=== PATIENT | male | born 1985 | race Caucasian/White ===

== ENCOUNTER 2020-04-15 19:47 | Observation (INO) | payer SELFPAY ==
[~2020-04-15] VITALS: Ht 185.4 cm; Wt 98.0 kg
[2020-04-15] MEDS ORDERED: LORazepam 0.5 MG (ATIVAN) TABLET PO STA ×2 (20:23)
--- NOTE | 2020-04-15 20:44 | ED Psychosocial ---
General Chief Complaint: Detox Stated Complaint: CHEST PAIN,ABD PAIN,NAUSEA Nursing Triage Note: Pt states he usually consumes a large amount of liquor everyday and stopped drinking 2 days ago. Pt is very anxious and having generalized muscle spasms Source: patient Exam Limitations: no limitations History of Present Illness Date Seen by Provider: Apr 15, 2020 Time Seen by Provider: 20:10 Initial Comments the patient arrives ER by private conveyance from home with chief complaint of shakes, dry heaving, nausea, body aches feeling unwell all day today. He quit drinking 2 days ago. He drinks about a pint of vodka and a sixpack of beer a day. He says is going through a divorce and tried to quit drinking. The past he has had DTs whenever he quit drinking. He has not had any seizures. He does not follow with a doctor or have any known medical problems. He denies any fever cough chills or shortness of breath. He denies suicidal ideation. He wants help getting through his withdrawal symptoms. Allergies and Home Medications Allergies Coded Allergies: No Known Drug Allergies (Unverified , 04/15/20) Patient Home Medication List Home Medication List Reviewed: Yes Review of Systems Constitutional: No chills, No fever; malaise EENTM: No ear discharge, No ear pain Respiratory: No cough, No short of breath Cardiovascular: No Hx of Intervention, No palpitations Gastrointestinal: see HPI; No abdominal pain; loss of appetite, nausea, vomiting (dry heaving, poor fluid intake) Skin: No pruritus, No rash All Other Systems Reviewed Negative Unless Noted: Yes Past Chqdfll-Nagchb-Ktixyt Hx Patient Social History Alcohol Use: Regular Use Alcohol Beverage of Choice: Beer (sixpack a day), Whiskey (wild turkey), Cheap Liquor Recreational Drug Use: No Smoking Status: Never a Smoker Recent Foreign Travel: No Contact w/Someone Who Travel: No Recent Infectious Disease Expo: No Recent Hopitalizations: No Physical Abuse: No Sexual Abuse: No Past Medical History Surgeries: No Respiratory: No Cardiac: No Neurological: No Genitourinary: No Gastrointestinal: No Musculoskeletal: No Endocrine: No HEENT: No Cancer: No Psychosocial: No Integumentary: No Blood Disorders: No Physical Exam Vital Signs - First Documented 04/15/20 20:00 Pulse 90 Resp 18 B/P (MAP) 188/112 (137) Pulse Ox 98 O2 Delivery Room Air Capillary Refill : Less Than 3 Seconds Height, Weight, BMI Height: '" Weight: lbs. oz. 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, no motor/sensory deficits, alert, normal mood/affect, oriented x 3, other (fine tremors all 4 quadrants) Appearance/Memory: appropriate appearance, appropriate insight Behavior/Eye Contact: cooperative, good eye contact, normal speech Thoughts/Hallucinations: normal thought pattern, no apparent hallucination Skin: normal color, diaphoresis Progress/Results/Core Measures Results/Orders Lab Results Laboratory Tests Test 04/15/20 20:10 04/15/20 21:25 Range/Units White Blood Count 21.4 H 4.3-11.0 10^3/uL Red Blood Count 5.74 4.35-5.85 10^6/uL Hemoglobin 18.5 H 13.3-17.7 G/DL Hematocrit 51 40-54 % Mean Corpuscular Volume 89 80-99 FL Mean Corpuscular Hemoglobin 32 25-34 PG Mean Corpuscular Hemoglobin Concent 36 32-36 G/DL Red Cell Distribution Width 11.7 10.0-14.5 % Platelet Count 272 130-400 10^3/uL Mean Platelet Volume 11.0 H 7.4-10.4 FL Immature Granulocyte % (Auto) 0 % Neutrophils (%) (Auto) 91 H 42-75 % Lymphocytes (%) (Auto) 5 L 12-44 % Monocytes (%) (Auto) 4 0-12 % Eosinophils (%) (Auto) 0 0-10 % Basophils (%) (Auto) 0 0-10 % Neutrophils # (Auto) 19.3 H 1.8-7.8 X 10^3 Lymphocytes # (Auto) 1.1 1.0-4.0 X 10^3 Monocytes # (Auto) 0.9 0.0-1.0 X 10^3 Eosinophils # (Auto) 0.0 0.0-0.3 10^3/uL Basophils # (Auto) 0.1 0.0-0.1 10^3/uL Immature Granulocyte # (Auto) 0.1 0.0-0.1 10^3/uL Neutrophils % (Manual) 87 % Lymphocytes % (Manual) 3 % Monocytes % (Manual) 3 % Eosinophils % (Manual) 0 % Basophils % (Manual) 0 % Band Neutrophils 7 % Blood Morphology Comment NORMAL Sodium Level 140 135-145 MMOL/L Potassium Level 4.2 3.6-5.0 MMOL/L Chloride Level 93 L 98-107 MMOL/L Carbon Dioxide Level 18 L 21-32 MMOL/L Anion Gap 29 H 5-14 MMOL/L Blood Urea Nitrogen 17 7-18 MG/DL Creatinine 1.09 0.60-1.30 MG/DL Estimat Glomerular Filtration Rate > 60 BUN/Creatinine Ratio 16 Glucose Level 188 H 70-105 MG/DL Calcium Level 9.6 8.5-10.1 MG/DL Corrected Calcium 8.5-10.1 MG/DL Total Bilirubin 1.7 H 0.1-1.0 MG/DL Aspartate Amino Transf (AST/SGOT) 45 H 5-34 U/L Alanine Aminotransferase (ALT/SGPT) 57 H 0-55 U/L Alkaline Phosphatase 120 40-136 U/L Total Protein 8.7 H 6.4-8.2 GM/DL Albumin 5.4 H 3.2-4.5 GM/DL Lipase 22 8-78 U/L Serum Alcohol < 10 <10 MG/DL Urine Color YADY H Urine Clarity CLEAR Urine pH 6.0 5-9 Urine Specific [place] >=1.030 1.016-1.022 Urine Protein 2+ H NEGATIVE Urine Glucose (UA) TRACE H NEGATIVE Urine Ketones 1+ H NEGATIVE Urine Nitrite NEGATIVE NEGATIVE Urine Bilirubin 1+ H NEGATIVE Urine Urobilinogen 0.2 < = 1.0 MG/DL Urine Leukocyte Esterase NEGATIVE NEGATIVE Urine RBC (Auto) 2+ H NEGATIVE Urine RBC 0-2 /HPF Urine WBC 0-2 /HPF Urine Squamous Epithelial Cells RARE /HPF Urine Crystals NONE /LPF Urine Bacteria NEGATIVE /HPF Urine Casts PRESENT /LPF Urine Hyaline Casts >50 H /LPF Urine Mucus LARGE H /LPF Urine Culture Indicated NO Urine Opiates Screen NEGATIVE NEGATIVE Urine Oxycodone Screen NEGATIVE NEGATIVE Urine Methadone Screen NEGATIVE NEGATIVE Urine Propoxyphene Screen NEGATIVE NEGATIVE Urine Barbiturates Screen NEGATIVE NEGATIVE Ur Tricyclic Antidepressants Screen NEGATIVE NEGATIVE Urine Phencyclidine Screen NEGATIVE NEGATIVE Urine Amphetamines Screen NEGATIVE NEGATIVE Urine Methamphetamines Screen NEGATIVE NEGATIVE Urine Benzodiazepines Screen POSITIVE H NEGATIVE Urine Cocaine Screen NEGATIVE NEGATIVE Urine Cannabinoids Screen NEGATIVE NEGATIVE My Orders Orders - STORMY RODGERS Ekg Tracing (04/15/20 19:48) Continuous Ekg Monitoring (04/15/20 19:48) Lorazepam Tablet (Ativan Tablet) (04/15/20 20:23) Lorazepam Tablet (Ativan Tablet) (04/15/20 20:23) Lorazepam Injection (Ativan Injection) (04/15/20 20:45) Ondansetron Injection (Zofran Injectio (04/15/20 20:45) Thiamine Injection (Vitamin B-1 Injectio (04/15/20 20:45) Folic Acid Tablet (Folic Acid Tablet) (04/15/20 20:45) Lactated Ringers (Lr 1000 Ml Iv Solution (04/15/20 20:45) Cbc With Automated Diff (04/15/20 20:38) Comprehensive Metabolic Panel (04/15/20 20:38) Ua Culture If Indicated (04/15/20 20:38) Drug Screen Stat (Urine) (04/15/20 20:38) Alcohol (04/15/20 20:38) Lipase (04/15/20 20:38) Chest 1 View Ap/Pa Only (04/15/20 20:44) Ed Iv/Invasive Line Start (04/15/20 20:50) Manual Differential (04/15/20 20:10) Creatine Kinase (04/15/20 21:26) Ed Iv/Invasive Line Start (04/15/20 21:26) D5 1/2 Ns 1000 Ml Iv Solution (Dextrose (04/15/20 21:30) Ondansetron Injection (Zofran Injectio (04/15/20 21:30) Ketorolac Injection (Toradol Injection) (04/15/20 21:30) Lorazepam Injection (Ativan Injection) (04/15/20 21:45) Lactated Ringers (Lr 1000 Ml Iv Solution (04/15/20 22:30) Lorazepam Injection (Ativan Injection) (04/15/20 22:30) Medications Given in ED Current Medications Medications Dose Ordered Sig/Linnette Route Start Time Stop Time Status Last Admin Dose Admin Dextrose/Sodium Chloride 1,000 ml @ 0 mls/hr ONCE ONCE IV 04/15/20 21:30 04/15/20 21:31 DC 04/15/20 21:34 999 MLS/HR Folic Acid 1 mg ONCE ONCE PO 04/15/20 20:45 04/15/20 20:46 DC 04/15/20 20:49 1 MG Ketorolac Tromethamine 30 mg ONCE ONCE IVP 04/15/20 21:30 04/15/20 21:31 DC 04/15/20 21:34 30 MG Lactated Ringer's 1,000 ml @ 0 mls/hr Q0M ONCE IV 04/15/20 20:45 04/15/20 20:46 DC 04/15/20 20:48 999 MLS/HR Lactated Ringer's 1,000 ml @ 0 mls/hr Q0M ONCE IV 04/15/20 22:30 04/15/20 22:31 DC 04/15/20 22:32 999 MLS/HR Lorazepam 1 mg ONCE ONCE IVP 04/15/20 20:45 04/15/20 20:46 DC 04/15/20 20:49 1 MG Lorazepam 1 mg ONCE ONCE IVP 04/15/20 21:45 04/15/20 21:46 DC 04/15/20 22:06 1 MG Lorazepam 2 mg ONCE ONCE IVP 04/15/20 22:30 04/15/20 22:31 DC 04/15/20 22:32 2 MG Ondansetron HCl 4 mg ONCE ONCE IVP 04/15/20 21:30 04/15/20 21:31 DC 04/15/20 21:34 4 MG Ondansetron HCl 8 mg ONCE ONCE IVP 04/15/20 20:45 04/15/20 20:46 DC 04/15/20 20:48 8 MG Thiamine HCl 100 mg ONCE ONCE IV 04/15/20 20:45 04/15/20 20:46 DC 04/15/20 20:49 100 MG Vital Signs/I&O 04/15/20 20:00 Pulse 90 Resp 18 B/P (MAP) 188/112 (137) Pulse Ox 98 O2 Delivery Room Air Blood Pressure Mean: 137 Progress Progress Note #1: Time: 20:42 Progress Note Plan to give him ondansetron and lactated Ringer's to treat his symptoms. We have given him 1 mg of oral Ativan while he was waiting to be seen and we'll give him another milligram IV Ativan as he still appears to be quite in distress. Plan to give him thiamine, folate and get some basic labs including a lipase and urinalysis with drug screen. If these looked okay but can set him up for some outpatient follow-up through [facility] alcohol withdrawal treatment program versus inpatient if he wants to try going to [facility] drug and alcohol program. Progress Note #2: Time: :42 Progress Note He has a significant gap and acidemia, suspect KetoGenesis related to his alcohol withdrawal. A second liter of fluids D5 half-normal saline were ordered. He still has a fine tremor and is asking for something else so we'll give him another dose of Ativan. Progress Note #3: Time: 22:21 Progress Note The patient still having significant tremors and discomfort. His nausea is at least under control after 12 mg of Zofran. We did offer him a stay in the hospital for his acidemia and dehydration stating that we would probably not be able to get his symptoms under control in the ER. The patient is very hesitant to want to go to the hospital. Were going to try another 2 mg of Ativan and another liter of LR for a total of 5 mg Ativan and 3 L of fluids. He is going to call his mother and sister for advice. Progress Note #4: Time: 22:28 Progress Note After discussing with his family the patient has elected to stay in the hospital for IV fluids and alcohol withdrawal treatment. Initial ECG Impression Date: Apr 15, 2020 Initial ECG Impression Time: 20:00 Initial ECG Rate: 87 Initial ECG Rhythm: Normal Sinus Initial ECG Intervals: Normal Initial ECG Impression: Normal, Nonspecific Changes Initial ECG Comparisson: No Previous ECG Available Comment Normal sinus rhythm without clinically relevant ST elevation or depression. Diagnostic Imaging Diagonstic Imaging: Xray Plain Films/CT/US/NM/MRI: chest Comments NAME: WESLEY GENTILE MED REC#: [id number] PT STATUS: REG ER : 1985 PHYSICIAN: STORMY RODGERS MD ADMIT DATE: 04/15/20/ER FS Signed Date of Exam:04/15/20 CHEST 1 VIEW AP/PA ONLY CHEST 1 VIEW AP/PA ONLY Indication: Alcohol withdrawal's, chest pain Comparison: None available. Findings: No focal airspace disease in the visualized lungs. Please note that the posterior lower lobes are poorly evaluated by portable radiography. No pleural effusion or pneumothorax. Normal cardiomediastinal silhouette. Impression: 1. No acute cardiopulmonary process by portable radiography. Dictated by: Dictated on workstation # [id number] Dict: 04/15/202107 Trans: 04/15/202107 [facility] [id number] Interpreted by: JACINTA EDMONDS MD Electronically signed by: JACINTA EDMONDS MD 04/15/202107 Reviewed: Reviewed by Me Departure Communication (Admissions) Time/Spoke to Admitting Phy: 22:00 Discussed the case with Dr. Woodward and she agrees to keep the patient in the ICU overnight for IV fluids and up all withdrawal protocol. Impression Primary Impression: Alcohol withdrawal syndrome Qualified Codes: F10.230 - Alcohol dependence with withdrawal, uncomplicated Additional Impressions: Acute dehydration ketogenic metabolic acidemia Disposition: ADMITTED INPATIENT Condition: Stable Admissions Decision to Admit Reason: Admit from ER (General) Decision to Admit/Date: Apr 15, 2020 Time/Decision to Admit Time: 21:45 Departure-Patient Inst. Referrals: NO,LOCAL PHYSICIAN (PCP/Family) Primary Care Physician STORMY RODGERS Apr 15, 2020 20:44
[2020-04-15] MEDS ORDERED: ONDANSETRON 4 MG/2 ML (SDV) Z0FRAN IVP ONE ×2 (20:45→21:30)
[2020-04-15] MEDS ORDERED: THIAMINE 100 MG/ML 2 ML (VITAMIN B-1) VIAL IV ONE (20:45)
[2020-04-15] MEDS ORDERED: LACTATED RINGERS 1,000 ML IV ONE ×2 (20:45→22:30)
[2020-04-15] MEDS ORDERED: FOLIC ACID 1 MG TAB PO ONE (20:45)
[2020-04-15] MEDS ORDERED: LORazepam INJ 2 MG/ML (ATIVAN) VIAL IVP ONE ×3 (20:45→22:30)
[2020-04-15 20:49] LABS: BASOPHILS % (AUTO) 0 % (0-10); EOSINOPHILS % (AUTO) 0 % (0-10); HEMATOCRIT 51 % (40-54); HEMOGLOBIN 18.5 G/DL (13.3-17.7); LYMPHOCYTES % (AUTO) 5 % (12-44); MEAN CORPUSCULAR HEMOGLOBIN 32 PG (25-34); MEAN CORPUSCULAR HGB CONC 36 G/DL (32-36); MEAN CORPUSCULAR VOLUME 89 FL (80-99); MONOCYTES % (AUTO) 4 % (0-12); PLATELET COUNT 272 10^3/uL (130-400); WHITE BLOOD COUNT 21.4 10^3/uL (4.3-11.0)
[2020-04-15 20:50] LABS: BASOPHILS # (AUTO) 0.1 10^3/uL (0.0-0.1); LYMPHOCYTES # (AUTO) 1.1 X 10^3 (1.0-4.0); MONOCYTES # (AUTO) 0.9 X 10^3 (0.0-1.0); NEUTROPHILS # (AUTO) 19.3 X 10^3 (1.8-7.8); NEUTROPHILS % (AUTO) 91 % (42-75)
[2020-04-15 21:03] LABS: BAND NEUTROPHILS 7 %; BASOPHILS % (MANUAL) 0 %; EOSINOPHILS % (MANUAL) 0 %; LYMPHOCYTES % (MANUAL) 3 %; MONOCYTES % (MANUAL) 3 %; NEUTROPHILS % (MANUAL) 87 %; RBC MORPH NORMAL
[2020-04-15 21:04] LABS: ALANINE AMINOTRANSFERASE 57 U/L (0-55); ALBUMIN 5.4 GM/DL (3.2-4.5); ALKALINE PHOSPHATASE 120 U/L (40-136); BILIRUBIN,TOTAL 1.7 MG/DL (0.1-1.0); BUN/CREATININE RATIO 16; CALCIUM 9.6 MG/DL (8.5-10.1); CARBON DIOXIDE 18 MMOL/L (21-32); CHLORIDE 93 MMOL/L (98-107); CREATININE SERUM 1.09 MG/DL (0.60-1.30); GFR ESTIMATED > 60; GLUCOSE 188 MG/DL (70-105); LIPASE 22 U/L (8-78); POTASSIUM 4.2 MMOL/L (3.6-5.0); SODIUM 140 MMOL/L (135-145); TOTAL PROTEIN 8.7 GM/DL (6.4-8.2)
--- NOTE | 2020-04-15 21:10 | Diagnostic Imaging Report ---
CHEST 1 VIEW AP/PA ONLY Indication: Alcohol withdrawal's, chest pain Comparison: None available. Findings: No focal airspace disease in the visualized lungs. Please note that the posterior lower lobes are poorly evaluated by portable radiography. No pleural effusion or pneumothorax. Normal cardiomediastinal silhouette. Impression: 1. No acute cardiopulmonary process by portable radiography. Dictated by: Dictated on workstation # [id number]
[2020-04-15] MEDS ORDERED: D5 1/2 NS 1000 ML IV SOLUTION 1,000 ML IV ONE (21:30)
[2020-04-15] MEDS ORDERED: KETOROLAC 30 MG/ML VIAL IVP ONE (21:30)
[2020-04-15 21:48] LABS: AMPHETAMINE SCREEN, URINE NEGATIVE (NEGATIVE); BARBITURATE SCREEN URINE NEGATIVE (NEGATIVE); BENZODIAZEPINES SCREEN URINE POSITIVE (NEGATIVE); CANNABINOID SCREEN, URINE NEGATIVE (NEGATIVE); COCAINE SCREEN URINE NEGATIVE (NEGATIVE); METHADONE STAT NEGATIVE (NEGATIVE); METHAMPHETAMINE SCREEN URINE S NEGATIVE (NEGATIVE); OPIATE SCREEN URINE NEGATIVE (NEGATIVE); OXYCODONE STAT NEGATIVE (NEGATIVE); PROPOXYPHENE STAT NEGATIVE (NEGATIVE); TRICYCLIC ANTIDEPRESSANTS SCRE NEGATIVE (NEGATIVE)
[2020-04-15 21:49] LABS: BILIRUBIN,URINE 1+ (NEGATIVE); CLARITY,URINE CLEAR; COLOR,URINE AMBER; GLUCOSE, URINE (UA) TRACE (NEGATIVE); KETONES,URINE 1+ (NEGATIVE); LEUKOCYTE ESTERASE ,URINE NEGATIVE (NEGATIVE); NITRITE,URINE NEGATIVE (NEGATIVE); PROTEIN,URINE 2+ (NEGATIVE)
[2020-04-15 21:50] LABS: BACTERIA,URINE NEGATIVE /HPF; HYALINE CASTS, URINE >50 /LPF; RBC,URINE 0-2 /HPF; SQUAMOUS EPITHELIAL CELL,UR RARE /HPF; WBC,URINE 0-2 /HPF
[2020-04-15] MEDS ORDERED: PANTOPRAZOLE 40 MG (PROTONIX) VIAL IV ONE (23:00)
[2020-04-15] MEDS ORDERED: ANTACID SUSP 30 ML UDC (MYLANTA) PO ONE (23:00)
[2020-04-15] MEDS ORDERED: hydrALAZINE (APESOLINE) 20 MG/ML VIAL IV ONE (23:00)
[2020-04-15] MEDS ORDERED: LIDOCAINE 2% VISCOUS 15 ML UDC PO ONE (23:00)
[2020-04-16] MEDS ORDERED: D5 1/2 NS 1000 ML IV SOLUTION 0 ML IV ONE (00:52)
[2020-04-16] MEDS ORDERED: D5 1/2 NS W/KCL 20 MEQ/L 1,000 ML IV ONE (00:56)
[2020-04-16] MEDS ORDERED: 1/2 NS IV SOLUTION 1,000 ML IV PRN (01:06)
[2020-04-16] MEDS ORDERED: ONDANSETRON 4 MG/2 ML (SDV) Z0FRAN IVP PRN (01:15)
[2020-04-16] MEDS ORDERED: ONDANSETRON 4 MG/2 ML (SDV) Z0FRAN IV PRN (01:15)
[2020-04-16] MEDS ORDERED: LORazepam INJ 2 MG/ML (ATIVAN) VIAL IV PRN (01:15)
[2020-04-16] MEDS ORDERED: ONDANSETRON 4 MG (ZOFRAN) ORAL DISSOLVE TAB SL PRN (01:15)
[2020-04-16] MEDS ORDERED: SENNA W/DOCUSATE (SENOKOT S) TABLET PO PRN (01:15)
[2020-04-16] MEDS ORDERED: D5 1/2 NS 1000 ML IV SOLUTION 1,000 ML IV PRN (01:15)
[2020-04-16] MEDS ORDERED: D5 1/2 NS 1000 ML IV SOLUTION 1,000 ML IV SCH (01:15)
[2020-04-16] MEDS ORDERED: ANTACID SUSP 30 ML UDC (MYLANTA) PO PRN ×2 (01:15)
[2020-04-16] MEDS ORDERED: PROMETHAZINE INJ 25 MG/ML (PHENERGAN) AMP IVP PRN (01:15)
[2020-04-16] MEDS ORDERED: LORazepam INJ 2 MG/ML (ATIVAN) VIAL IM/IV PRN (01:15)
[2020-04-16] MEDS: D5 1/2 NS W/KCL 20 MEQ/L 1,000 ML IV SCH ×4 (01:18→19:00)
[2020-04-16] MEDS ORDERED: FAMOTIDINE 20 MG (PEPCID) TABLET PO ONE (01:30)
[2020-04-16] MEDS ORDERED: CALCIUM CARBONATE 500 MG (TUMS) TAB.CHEW PO PRN (01:30)
[2020-04-16 03:35] LABS: BASOPHILS % (AUTO) 0 % (0-10); EOSINOPHILS % (AUTO) 0 % (0-10); HEMATOCRIT 44 % (40-54); HEMOGLOBIN 15.5 g/dL (13.3-17.7); LYMPHOCYTES % (AUTO) 16 % (12-44); MEAN CORPUSCULAR HEMOGLOBIN 32 pg (25-34); MEAN CORPUSCULAR HGB CONC 36 g/dL (32-36); MEAN CORPUSCULAR VOLUME 90 fL (80-99); MEAN PLATELET VOLUME 10.6 fL (9.0-12.2); MONOCYTES # (AUTO) 1.2 10^3/uL (0.0-1.0); MONOCYTES % (AUTO) 10 % (0-12); NEUTROPHILS # (AUTO) 9.4 10^3/uL (1.8-7.8); NEUTROPHILS % (AUTO) 74 % (42-75); PLATELET COUNT 182 10^3/uL (130-400); WHITE BLOOD COUNT 12.6 10^3/uL (4.3-11.0)
[2020-04-16 03:48] LABS: PHOSPHORUS 2.2 MG/DL (2.3-4.7)
[2020-04-16 03:51] LABS: MAGNESIUM 1.1 MG/DL (1.6-2.4)
--- NOTE | 2020-04-16 04:36 | Pulmonary Consultation ---
History of Present Illness History of Present Illness Date Seen by Provider: Apr 16, 2020 Time Seen by Provider: 04:32 Date of Admission Allergies and Home Medications Allergies Coded Allergies: No Known Drug Allergies (Unverified , 04/15/20) Past Bjmttfa-Dghmmg-Rljmxy Hx Patient Social History Alcohol Use: Regular Use Alcohol Beverage of Choice: Beer (sixpack a day), Whiskey (wild turkey), Cheap Liquor Recreational Drug Use: No Smoking Status: Never a Smoker Recent Foreign Travel: No Contact w/Someone Who Travel: No Recent Infectious Disease Expo: No Recent Hopitalizations: No Physical Abuse: No Sexual Abuse: No Past Medical History Surgeries: No Respiratory: No Cardiac: No Neurological: No Genitourinary: No Gastrointestinal: No Musculoskeletal: No Endocrine: No HEENT: No Cancer: No Psychosocial: No Integumentary: No Blood Disorders: No Sepsis Event Evaluation Height, Weight, BMI Height: '" Weight: lbs. oz. kg; 29.03 BMI Method: Exam Exam Vital Signs Date Time Temp Pulse Resp B/P (MAP) Pulse Ox O2 Delivery O2 Flow Rate FiO2 04/16/20 01:45 101 29 157/102 98 Room Air 04/16/20 01:30 87 8 155/104 99 Room Air 04/16/20 01:15 97 27 155/113 98 Room Air 04/16/20 01:00 105 171/105 99 Room Air 04/16/20 01:00 105 04/16/20 00:56 37.2 114 167/113 98 Room Air 04/16/20 00:47 97 Room Air 04/15/20 23:31 105 18 177/109 98 Room Air 04/15/20 20:00 90 18 188/112 (137) 98 Room Air I & O 04/16/20 07:00 Intake Total 3100 ml Output Total 200 ml Balance 2900 ml Height & Weight Height: '" Weight: lbs. oz. kg; 29.03 BMI Method: Capillary Refill: Less Than 3 Seconds Peripheral Pulses: 2+ Radial Pulses (R), 2+ Radial Pulses (L) Gastrointestinal: normal bowel sounds, non tender, soft Results Lab Laboratory Tests 04/15/20 20:10 04/16/20 02:54 Assessment/Plan Assessment/Plan Alcohol withdrawal syndrome -Last drink was 3 days ago. Additional Impressions: Acute dehydration -Currently on D51/2 NS with 20KCL - at 150ml/hr ketogenic metabolic acidemia JESSICA DELVALLE DO Apr 16, 2020 04:36
[2020-04-16 04:41] LABS: BUN/CREATININE RATIO 14; CARBON DIOXIDE 21 MMOL/L (21-32); CHLORIDE 100 MMOL/L (98-107); CREATININE SERUM 1.07 MG/DL (0.60-1.30); GFR ESTIMATED > 60; GLUCOSE 128 MG/DL (70-105); POTASSIUM 3.6 MMOL/L (3.6-5.0); SODIUM 137 MMOL/L (135-145)
[2020-04-16 04:42] LABS: CALCIUM 8.2 MG/DL (8.5-10.1)
[2020-04-16] MEDS: MAGNESIUM 1 GM/100 ML IVPB 100 ML IV SCH ×9 (04:57→18:06)
[2020-04-16] MEDS: POTASSIUM CL 10MEQ/50ML IVPB 50 ML IV SCH (06:04)
[2020-04-16] MEDS: KCL 20 MEQ TAB (K-DUR) PO SCH (06:05)
--- NOTE | 2020-04-16 07:33 | Diagnostic Imaging Report ---
INDICATION: Alcohol abuse. Ketogenic metabolic acidosis. Comparison with 04/15/2020. FINDINGS: Portable chest. There is elevation of the right hemidiaphragm with right basilar atelectasis. Lungs otherwise clear. Costophrenic angles are sharp. Heart is not enlarged. No pulmonary edema. No bony abnormalities. IMPRESSION: Right basilar atelectasis developing since previous exam. Dictated by: Dictated on workstation # [id number]
[2020-04-16] MEDS: MAGNESIUM OXIDE (MAG-OX)400 MG TAB PO SCH ×2 (08:45→20:01)
[2020-04-16] MEDS: FAMOTIDINE 20 MG (PEPCID) TABLET PO SCH ×2 (08:46→20:01)
[2020-04-16] MEDS: THIAMINE 100 MG (VITAMIN B-1) TAB PO SCH (08:46)
[2020-04-16] MEDS: FOLIC ACID 1 MG TAB PO SCH (08:46)
[2020-04-16] MEDS: MULTIVIT W/MINERALS TAB (THERAGRAN M) PO SCH (08:47)
[2020-04-16] MEDS ORDERED: PANTOPRAZOLE 40 MG (PROTONIX) VIAL IV SCH (09:00)
[2020-04-16] MEDS ORDERED: POTASSIUM PHOSPHATE INJ 30 MM in NS (IVPB) 250 ML IV ONE (09:00)
--- NOTE | 2020-04-16 10:30 | NUR ---
REPORT RECEIVED FROM CERTIFIED PROFESSIONAL ERGONOMIST LULU. PATIENT TO ROOM 410 VIA WHEELCHAIR. PATIENT DENIES ANY NEEDS AT THIS TIME WILL CONTINUE TO MONITOR.
--- NOTE | 2020-04-16 11:28 | NUR ---
CM/SS visited with patient for social service consult. The patient way lying in bed with the lights off. He was solemn and had a flat affect. The patient states that he is still having some pain today but is feeling better than he was yesterday. The patient was willing to discuss discharge planning with this sw. Home: The patient reports that he lives at home alone. He is currently going through a divorce. Substance Use: Patient openly admits to drinking. He states he has been drinking for 5 years on and off but believes recently his consumption increased with the stress of the divorce. The patient reports to drinking a pint of whiskey and a 12 pack of beer daily. The patient states it was his choice to quit a couple of days ago and he is still wanting to find resources to assist him in quitting. CM/SS discussed inpatient treatment vs outpatient treatment options. The patient reports he is looking for an outpatient program close to his home in [place]. CM/SS provided patient with resources for the [facility] outpatient treatment for a back up. CM/SS provided patient with information on [facility] (inpatient). The patient is looking for more local resources. This sw researched [place] and the local outpatient mental health and substance use treatment is [facility]. CM/SS provided a print out with information and contact information. CM/SS also provided patient with an online AA website and the local [place] AA phone number/address. He verbalized understanding. Supports: The patient reports that he has a good support system with his mother and sister; however, is loosing some of his supports through the divorce. Either his mother or sister will be the patient's transportation home. 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 CM/ALEXANDER will continue to follow.
[2020-04-16] MEDS: LORazepam 1 MG (ATIVAN) TAB PO PRN ×2 (12:31→22:54)
[2020-04-16] MEDS ORDERED: POT PHOS/NA PHOS (K-PHOS NEUTRAL) PO NR (13:15)
[2020-04-16] MEDS ORDERED: KCL 20 MEQ TAB (K-DUR) PO NR (13:15)
[2020-04-16] MEDS ORDERED: MULT-1030 PO (13:23)
[2020-04-16] MEDS ORDERED: ASPI-789 PO (13:23)
--- NOTE | 2020-04-16 13:23 | NUR ---
SPOKE WITH THE PT TO COMPLETE THE MED REC PT DENIES TAKING ANY PRESCRIPTION MEDICATIONS OTC MEDS: MENS MTV EXCEDRIN PRN
--- NOTE | 2020-04-16 13:29 | NUR ---
"RD ASSESSMENT PMHx: ETOH abuse; no other PMH PT INTERACTION: Pt was awake and pleasant during nutrition assessment. Pt states current appetite is so-so and has been this way for about 4d. Note PO intake 50% x1meal, per chart review. Pt states following a regular diet at home, and has no issues with chewing/swallowing food. Pt states recent issues with nausea, vomiting, and diarrhea. Note last BM was 04/16, and pt currently on bowel regimen of senna PRN, per chart review. Pt states no recent wt changes. Note unable to determine recent wt hx, per chart review. ABNORMAL NUTRITION-RELATED LAB VALUES LOW: Ca 8.2; phos 2.2 HIGH: glu 128 Est. kcal needs: 2000 kcal | 20 kcal/kg Est. Pro needs: 80 g Pro | 0.8 g Pro/kg PES STATEMENT: Inadequate oral intake (NI-2.1) related to loss of appetite | nausea | vomiting | diarrhea as evidenced by pt interview | PO intake 50% x1meal INTERVENTION: Continue with current diet order of Regular diet. Pt may benefit from nutrition supplementation if PO intake declines. Will continue to follow and reassess as pt needs, intake, and status change. MS SOLANGE Martinez Addendum: 04/16/20 at [address] Note pt also assessed for malnutrition, d/t MST score. Note pt does not meet criteria for malnutrition, per ASPEN guidelines. MS SOLANGE Martinez"
--- NOTE | 2020-04-16 15:30 | History & Physical-Hospitalist ---
History of Present Illness HPI/Chief Complaint Drake Terrell is a 34-year-old male who presented with general malaise. He has been having tremors. He reports body aches. He reports nausea and vomiting. He quit drinking 2 days ago. Before that he had been drinking a sixpack of beer and a pint of hard liquor daily. He reports that he has had alcohol withdrawal in the past but nothing this severe. He reports that he was having some visual hallucinations. He denies any auditory or tactile hallucinations. He denies any headaches. He denies any history of alcohol withdrawal seizures. He says he has never been admitted to the hospital for alcohol withdrawal. Source: patient Exam Limitations: no limitations Date Seen 04/16/20 Time Seen by a Provider: 08:45 Attending Physician Brook Woodward DO PCP No,Local Physician Referring Physician Date of Admission Apr 15, 2020 at 22:00 Home Medications & Allergies Home Medications Reviewed patient Home Medication Reconciliation performed by pharmacy medication reconciliations hvac engineering technician and/or nursing. Patients Allergies have been reviewed. Allergies Allergies Coded Allergies No Known Drug Allergies (Fsnmiyjnjx86/27/20) Past Usizmcu-Oaiwsp-Jagycy Hx Past Med/Social Hx: Reviewed Nursing Past Med/Soc Hx Patient Social History Alcohol Use: Regular Use Alcohol Beverage of Choice: Beer (sixpack a day), Whiskey (wild turkey), Cheap Liquor Recreational Drug Use: No Smoking Status: Never a Smoker Recent Foreign Travel: No Contact w/other who traveled: No Recent Hopitalizations: No Recent Infectious Disease Expo: No Past Medical History History of Blood Disorders: No Review of Systems Constitutional: malaise EENTM: no symptoms reported Respiratory: no symptoms reported Cardiovascular: no symptoms reported Gastrointestinal: nausea, vomiting Genitourinary: no symptoms reported Musculoskeletal: muscle pain Skin: no symptoms reported Psychiatric/Neurological: No Symptoms Reported Physical Exam Physical Exam Vital Signs Vital Signs - First Documented 04/15/20 04/16/20 20:00 00:56 Temp 37.2 Pulse 90 Resp 18 B/P (MAP) 188/112 (137) Pulse Ox 98 O2 Delivery Room Air Capillary Refill : Less Than 3 Seconds Height, Weight, BMI Height: '" Weight: lbs. oz. kg; 29.03 BMI Method: General Appearance: No Apparent Distress, Anxious HEENT: PERRL/EOMI, Pharynx Normal Neck: Normal Inspection, Supple Respiratory: Lungs Clear, Normal Breath Sounds, No Respiratory Distress Cardiovascular: Regular Rate, Rhythm, No Edema, No Murmur Gastrointestinal: Normal Bowel Sounds, Non Tender, Soft Extremity: Normal Inspection, Non Tender Neurologic/Psychiatric: Alert, Oriented x3, Other (tremulous) Skin: Normal Color, Warm/Dry Results Results/Procedures Labs Laboratory Tests 04/15/20 20:10 04/16/20 02:00 04/16/20 02:54 Patient resulted labs reviewed. Imaging: Reviewed Imaging Report Assessment/Plan Admission Diagnosis Alcohol withdrawal syndrome Admission Status: Observation Assessment and Plan Alcohol withdrawal syndrome Alcohol dependence Dehydration Hypomagnesemia Hypophosphatemia [facility] protocol IV fluids Vitamins SW consulted, appreciate assistance Monitor and replace electrolytes as needed DVT Prophylaxis: Lovenox Diagnosis/Problems Diagnosis/Problems (1) Alcohol withdrawal syndrome Status: Acute Qualifiers: Complication of substance-induced condition: uncomplicated Qualified Codes: F10.230 - Alcohol dependence with withdrawal, uncomplicated (2) Hypomagnesemia Status: Acute (3) Hypophosphatemia Status: Acute Clinical Quality Measures DVT/VTE Risk/Contraindication: Risk Factor Score Per Nursin RFS Level Per Nursing on Admit: 1=Low/No VTE PPX STEPHY BELLO MD Apr 16, 2020 15:30
[2020-04-17] MEDS: D5 1/2 NS W/KCL 20 MEQ/L 1,000 ML IV SCH ×2 (03:16→10:35)
[2020-04-17 05:49] LABS: HEMOGLOBIN 14.7 g/dL (13.3-17.7); MEAN PLATELET VOLUME 11.5 fL (9.0-12.2); MONOCYTES % (AUTO) 7 % (0-12)
[2020-04-17 05:51] LABS: BASOPHILS % (AUTO) 1 % (0-10); EOSINOPHILS # (AUTO) 0.1 10^3/uL (0.0-0.3); EOSINOPHILS % (AUTO) 2 % (0-10); HEMATOCRIT 43 % (40-54); LYMPHOCYTES # (AUTO) 1.9 10^3/uL (1.0-4.0); LYMPHOCYTES % (AUTO) 26 % (12-44); MEAN CORPUSCULAR HEMOGLOBIN 32 pg (25-34); MEAN CORPUSCULAR HGB CONC 34 g/dL (32-36); MEAN CORPUSCULAR VOLUME 94 fL (80-99); MONOCYTES # (AUTO) 0.5 10^3/uL (0.0-1.0); NEUTROPHILS # (AUTO) 4.8 10^3/uL (1.8-7.8); NEUTROPHILS % (AUTO) 64 % (42-75); PLATELET COUNT 140 10^3/uL (130-400); WHITE BLOOD COUNT 7.4 10^3/uL (4.3-11.0)
[2020-04-17 05:56] LABS: ALBUMIN 4.1 GM/DL (3.2-4.5); CHLORIDE 101 MMOL/L (98-107); POTASSIUM 4.1 MMOL/L (3.6-5.0); SODIUM 137 MMOL/L (135-145)
[2020-04-17 05:57] LABS: CALCIUM 8.2 MG/DL (8.5-10.1)
[2020-04-17 05:58] LABS: GLUCOSE 97 MG/DL (70-105); TOTAL PROTEIN 6.8 GM/DL (6.4-8.2)
[2020-04-17 05:59] LABS: CARBON DIOXIDE 25 MMOL/L (21-32)
[2020-04-17 06:00] LABS: BILIRUBIN,TOTAL 1.7 MG/DL (0.1-1.0)
[2020-04-17 06:02] LABS: ALKALINE PHOSPHATASE 79 U/L (40-136); CREATININE SERUM 0.96 MG/DL (0.60-1.30); GFR ESTIMATED > 60
[2020-04-17] MEDS: POTASSIUM CL 10MEQ/50ML IVPB 50 ML IV SCH (06:02)
[2020-04-17] MEDS: KCL 20 MEQ TAB (K-DUR) PO SCH (06:02)
[2020-04-17 06:03] LABS: BUN/CREATININE RATIO 13
[2020-04-17 06:05] LABS: ALANINE AMINOTRANSFERASE 47 U/L (0-55); MAGNESIUM 2.4 MG/DL (1.6-2.4)
[2020-04-17] MEDS: MAGNESIUM 1 GM/100 ML IVPB 100 ML IV SCH (06:09)
[2020-04-17] MEDS: THIAMINE 100 MG (VITAMIN B-1) TAB PO SCH (06:10)
[2020-04-17] MEDS: MULTIVIT W/MINERALS TAB (THERAGRAN M) PO SCH (06:11)
[2020-04-17] MEDS ORDERED: cloNIDine 0.1 MG (CATAPRES) TAB PO PRN (07:45)
[2020-04-17] MEDS ORDERED: GABAPENTIN 300 MG (NEURONTIN) CAP PO SCH (07:45)
[2020-04-17] MEDS: MAGNESIUM OXIDE (MAG-OX)400 MG TAB PO SCH (08:13)
[2020-04-17] MEDS: FAMOTIDINE 20 MG (PEPCID) TABLET PO SCH (08:13)
[2020-04-17] MEDS: FOLIC ACID 1 MG TAB PO SCH (08:13)
[2020-04-17] MEDS ORDERED: PANTOPRAZOLE 40 MG (PROTONIX) TAB PO SCH (09:00)
[2020-04-17] MEDS ORDERED: GABA-486 PO (09:46)
[2020-04-17 10:53] VITALS: BP 157/97
--- NOTE | 2020-04-17 13:09 | NUR ---
CM/SS finalized discharge. Plan: Patient discharged to home. Transportation from family. The patient reports that he is feeling much better than he did yesterday. CM/SS recapped resources on substance use. This sw asked patient if he would like this sw to set up an assessment appointment through [facility]. He declined at this time and would like to look into it more first. The patient denied any further needs at this time.
--- NOTE | 2020-04-17 14:39 | Discharge Summary ---
Discharge Summary Hospital Course Was the Problem List Reviewed?: Yes Problems/Dx: (1) Alcohol withdrawal syndrome Status: Acute Qualifiers: Qualified Codes: F10.230 - Alcohol dependence with withdrawal, uncomplicated (2) Hypomagnesemia Status: Resolved (3) Hypophosphatemia Status: Resolved Hospital Course Date of Admission: Apr 15, 2020 at 22:00 Admission Diagnosis: Alcohol withdrawal syndrome Family Physician/Provider: Stephanie,Local Physician Date of Discharge: 04/17/20 Discharge Diagnosis: Alcohol withdrawal syndrome Hospital Course: Drake Terrell is a 34-year-old male who presented with acute alcohol withdrawal. He was placed on the CIWA protocol. He required a minimal amount of Ativan. He was given a taper of gabapentin on discharge. He should follow-up with his primary care physician. He was discharged home in stable condition. Labs and Pending Lab Test: Laboratory Tests 04/17/20 04:20: White Blood Count 7.4, Red Blood Count 4.61, Hemoglobin 14.7, Hematocrit 43, Mean Corpuscular Volume 94, Mean Corpuscular Hemoglobin 32, Mean Corpuscular Hemoglobin Concent 34, Red Cell Distribution Width 11.7, Platelet Count 140, Mean Platelet Volume 11.5, Immature Granulocyte % (Auto) 0, Neutrophils (%) (Auto) 64, Lymphocytes (%) (Auto) 26, Monocytes (%) (Auto) 7, Eosinophils (%) (Auto) 2, Basophils (%) (Auto) 1, Neutrophils # (Auto) 4.8, Lymphocytes # (Auto) 1.9, Monocytes # (Auto) 0.5, Eosinophils # (Auto) 0.1, Basophils # (Auto) 0.0, Immature Granulocyte # (Auto) 0.0, Sodium Level 137, Potassium Level 4.1, Chloride Level 101, Carbon Dioxide Level 25, Anion Gap 11, Blood Urea Nitrogen 12, Creatinine 0.96, Estimat Glomerular Filtration Rate > 60, BUN/Creatinine Ratio 13, Glucose Level 97, Calcium Level 8.2L, Corrected Calcium 8.1L, Magnesium Level 2.4, Total Bilirubin 1.7H, Aspartate Amino Transf (AST/SGOT) 59H , Alanine Aminotransferase (ALT/SGPT) 47, Alkaline Phosphatase 79, Total Protein 6.8, Albumin 4.1 Microbiology 04/16/20 MRSA Screen - Final, Complete MRSA not isolated Home Meds Active Gabapentin 100 Mg Capsule 100 Mg PO UD 4 Days TAKE 300 MG EVERY 6 HOURS X 1 DAY, THEN 300 MG EVERY 8 HOURS X 1 DAY, THEN 300 MG EVERY 12 HOURS X 1 DAY, THEN 300 MG ONCE X 1 DAY Reported Excedrin Migraine Caplet (Aspirin/Acetaminophen/Caffeine) 1 Each Tablet 2 Each PO Q6-8HR PRN Centrum Men's Tablet (Multivits,Ca,Min/Iron/FA/Lycop) 1 Each Tablet 1 Each PO DAILY Assessment/Pt Instructions Take medications as prescribed. Begin taper of Gabapentin. Follow up with your PCP. Discharge Planning: <30 minutes discharge planning Discharge Instructions Discharge Diet: No Restrictions Activity as Tolerated: Yes Discharge Physical Examination Vital Signs Vital Signs Date Time Temp Pulse Resp B/P (MAP) Pulse Ox O2 Delivery O2 Flow Rate FiO2 04/17/20 10:53 36.0 73 20 157/97 97 Room Air General Appearance: No Apparent Distress, WD/WN Respiratory: Lungs Clear, Normal Breath Sounds, No Respiratory Distress Cardiovascular: Regular Rate, Rhythm, No Edema, No Murmur Gastrointestinal: Normal Bowel Sounds, Non Tender, Soft Extremity: Normal Inspection, Non Tender, No Pedal Edema Skin: Normal Color, Warm/Dry Neurologic/Psychiatric: Alert, Oriented x3, No Motor/Sensory Deficits, Normal Mood/Affect Allergies: Coded Allergies: No Known Drug Allergies (Unverified , 04/15/20) Discharge Summary Date of Admission Apr 15, 2020 at 22:00 Date of Discharge Apr 17, 2020 at 10:56 Discharge Date: Apr 17, 2020 Discharge Time: 10:56 Admission Diagnosis Alcohol withdrawal syndrome Discharge Diagnosis Alcohol withdrawal syndrome (1) Alcohol withdrawal syndrome Status: Acute Qualifiers: Qualified Codes: F10.230 - Alcohol dependence with withdrawal, uncomplicated (2) Hypomagnesemia Status: Resolved (3) Hypophosphatemia Status: Resolved Clinical Quality Measures DVT/VTE Risk/Contraindication: Risk Factor Score Per Nursin RFS Level Per Nursing on Admit: 1=Low/No VTE PPX STEPHY BELLO MD Apr 17, 2020 14:39
== END 2020-04-17 10:56 | disposition home or self-care (01) ==
LOC: ER FS 19:48 → ICU 22:00 → ER FS 04-16 00:05 → 4TH 04-16 10:28
PROVIDERS: ADMIT Internal Medicine; ATTEND Internal Medicine
DX: F10.230 Alcohol dependence with withdrawal, uncomplicated (principal); E83.42 Hypomagnesemia; E83.39 Other disorders of phosphorus metabolism; P19.9 Metabolic acidemia in newborn, unspecified
CPT/HCPCS: 36415; 71045 ×2; 80048; 80053 ×2; 80306; 81000; 82550; 83690; 83735 ×2; 84100; 85007; 85025 ×2; 85027; 87081; 99285; G0378 ×2; G0480; 80320